=== PATIENT | male | born 1950 | race Caucasian/White ===

== ENCOUNTER → 2017-04-09 | Outpatient (CLI) | payer OTHER ==
[~2017-04-09] VITALS: Ht 188 cm; Wt 111.6 kg
[~2017-04-09] MED LIST: ADULT LOW DOSE81 MG PO; AMBIEN 10 MG TA10 MG PO; ANDRODERM1 EAC1 TD; ASPIRIN EC81 M1 PO; CLONIDINE0.1 PO; COLACE 100 MG100 MG PO; DESYREL50 MG PO; FISH OIL 1,0001 EAC5 PO; HYDROCODON-ACE1 EAC5 PO; MAGNES; METHADONE HCL 110 M1 PO; METHADONE HCL5 MG PO; METHYLIN5 MG PO; METOPROLOL SUCC25 M1 PO; NEURONTIN 300300 M1 PO; NORCO 10-325 T1 EACH PO; OXYCODONE HCL5 M1 PO; TEGRETOL XR100 MG PO; TEGRETOL200 MG PO; TIZANIDINE HCL2 M1 PO; TIZANIDINE HCL4 MG PO; VITAMIN D1000 UNI1 PO; VITAMIN D3400 UNIT PO; VITAMINC500 PO; Vitamin D PO; WELLBUTRIN SR150 MG PO; ZANAFLEX2 M1 PO; ZANAFLEX2 MG PO; ZOFRAN 4 MG ORAL4 MG PO
--- NOTE | ~2017-04-09 | HPC ---
[address] [address] PAIN MANAGEMENT CONSULTATION Name: FABIÁN LYNCH Room #: [facility] [id number] Admission: 04/09/17 Attend Phys: Adrián Garcia DO Discharge: Date of : 46 Report #: [id number] THIS REPORT FOR: //name// CC: [facility] physician/PCP Adrián Garcia The patient is a 67-year-old gentleman with an intrathecal pump, status post lumbar decompressive laminectomy and chronic pain syndrome. He uses an incredibly low dose of morphine, 0.52 mg a day via a fled dosing program, which increases little bit at 10:00 a.m. to 6:00 p.m. He returns to pain clinic today for intrathecal pump refill, it is only about 6 months. He notes that his primary physician who writes for hydrocodone which he uses on a nondaily basis has left this practice. I have taken the liberty today of renewing hydrocodone 10/325 one tablet 3-4 times a day, limit 100 tablets. This should last about 6 months in this particular patient. PROCEDURE: Intrathecal pump refill. PROCEDURE NOTE: After written and informed consent was obtained, area overlying the pump was cleansed with ChloraPrep. Skin wheal with Xylocaine was raised. Pump was aspirated of its residual contents 9 mL. Refilled with 20 mL of new injectate, morphine 10 mg per mL. Pump was reprogrammed to deliver the same flex program, total daily dose of 0.52 mg of morphine a day. New reserve alarm day is . I would like to refill the pump, however, in 6 months due to concerns for stability of the agent in the pump. The needle was removed. The area was cleansed, Band-Aid was applied. The patient was monitored for an appropriate period of time, discharged in good and stable condition. By: [id number] Adrián Garcia DO /nt
[2017-04-09 14:32] VITALS: BP 123/71
== END | disposition home or self-care (01) ==
LOC: PAIN 07:14
DX: G89.4 Chronic pain syndrome (principal); Z98.890 Other specified postprocedural states

== ENCOUNTER → 2019-01-30 | Outpatient (CLI) | payer OTHER ==
[~2019-01-30] VITALS: Ht 185.4 cm; Wt 107.7 kg
[~2019-01-30] MED LIST changes: +KRILL OIL500 MG PO; +OXYCODONE-ACET1 EACH PO
--- NOTE | ~2019-01-30 | HPC ---
[facility] [address] [place] [address] PAIN MANAGEMENT CONSULTATION Name: FABIÁN LYNCH [facility] #[facility] [id number] Admission: 01/30/19 ������������������ Attend Phys: Cesar Boyd MD Discharge: ������������������ Date of : 46 Report #: [id number] THIS REPORT FOR: //name// CC: [facility] physician/PCP Cesar Morejon DO DATE OF SERVICE: 01/30/2019 Followup visit for chronic low back pain with radiculopathy and refill of intrathecal infusion pump. The patient returns to clinic today for refill of his pump. He has pain across his low back pain radiating into his left hip. Pain score with the pump is a 6/10, but he is satisfied with his current regimen, which also includes [place] 10/325, which he takes no more than about once a day for breakthrough pain in the evening. This works effectively, but he does not like the fact that it keeps him up at night. He had previously tried oxycodone. I have agreed to provide that for him as an alternative. His pump is infusing monotherapy with morphine and his dose is relatively low. He has an additional increase for 4 hours in the evening with his flex programming. I would like to increase that. PQRS REVIEW: 1. History of diffuse osteoarthritis involving his back and hips, particularly left hip, which is bothering him today. 2. He has fallen in the last 3 months, but would not normally be considered a fall risk. This is weather related. 3. He has had no blood thinners. 4. He has a history of hypertension and is under treatment by primary care physician. All medications were reviewed and reconciled. 5. He is on an opioid agreement, signed several years ago and reviewed today. He has no significant side effects from the medication, uses it carefully and cautiously at low dose, safeguard his medication. He is grateful for the additional relief it provides. 6. He does not use tobacco but drinks alcohol in a social setting. PHYSICAL EXAMINATION: GENERAL: 6 feet 1, 237 pounds. BMI 31.3. Blood pressure is 110/68, heart rate 70, respirations 16. He is able to move independently from sitting to standing position and ambulate without too much difficulty. He has pain across his low back. Positive straight leg raising noted on the left, involving the left hip. IMPRESSION: 1. Chronic low back pain, chronic hip pain with osteoarthritis. [facility] [address] [place] [address] PAIN MANAGEMENT CONSULTATION Name: FABIÁN LYNCH Room #: REG CLI [facility]#: [id number] Admission: 01/30/19 ������������������ Attend Phys: Cesar Boyd MD Discharge: ������������������ Date of : 46 Report #: [id number] 2. Post-laminectomy syndrome with radiculopathy. PROCEDURE: Pump refill. Skin was prepped with ChloraPrep and anesthetized. A 22-gauge non-coring needle advanced into the pump and old medication was removed and discarded per protocol. Pump was then refilled with a combination of hydromorphone and bupivacaine and a programming session was performed to increase the medication overall by about 10%. The majority of that being during his flex Program from 4:30 until 11:30 in the evening, a 7 hour boost. New medications were provided for breakthrough in the form of oxycodone 5/325, and I plan to see him back in the Pain Clinic in 3 to 6 months. ��������������������������������������������� ���������������������������������������� By: ��������������������������������������������� [id number] Cesar Boyd MD /nt
[2019-01-30 09:09] VITALS: BP 110/68
--- NOTE | 2019-01-30 09:22 | NUR ---
Pain Clinic Assessment: 1. History of Osteoarthritis: LEFT HIP History of Rheumatoid Arthritis: NONE 2. Height: 6 ft. 1 in. 185.4 cm. Weight: 237.4 lb. oz. 107.684 kg. Patient's BMI: 31.3 3. Vital Signs: BP: 110/68 Pulse: 70 Resp: 16 Temp: 02 Sat: 98 ECG Mon: 4. Pain Intensity: 6 5. Fall Risk: Dizziness: N Needs help standing or walking: N Fallen in the last 3 months: Y Fall risk comments: 6. Patient on Blood Thinner: None 7. History of Hypertension: Y 8. Opioid Therapy greater than 6 weeks: Y Opiate Contract Signed: 10/14/20 9. Risk Assessment Tool Provided: 10. Functional Assessment Tool: 11. Recreational Drug Use: Never Drug Type: Tobacco Use: Former Smoker Tobacco Type: Amount or Packs/day: How Many Years: Alcohol Use: Yes Frequency: Quant:
== END | disposition home or self-care (01) ==
LOC: PAIN 01-12 07:03
DX: Z45.1 Encounter for adjustment and management of infusion pump (principal); M54.16 Radiculopathy, lumbar region; M96.1 Postlaminectomy syndrome, not elsewhere classified; G89.29 Other chronic pain; M16.0 Bilateral primary osteoarthritis of hip; I10 Essential (primary) hypertension; Z87.891 Personal history of nicotine dependence; Z91.041 Radiographic dye allergy status; Z88.8 Allergy status to other drugs, medicaments and biological substances; Z79.899 Other long term (current) drug therapy

== ENCOUNTER → 2019-12-14 | Outpatient (CLI) | payer OTHER ==
[~2019-12-14] VITALS: Ht 185.4 cm; Wt 90.2 kg
[~2019-12-14] MED LIST changes: +ARMOUR THYROID30 M1 PO; +B-COMPLEX PLUS1 EACH PO; +DHEA50 MG PO; +FEXOFENADINE-P1 EACH PO; +FOLIC ACID1 MG PO; +MORINGA PO; +MSM1000 MG PO; +N-ACETYL-L-CYS600 MG PO; +PROBIOTIC1 EAC7 PO; +TESTOSTERONE200 MG IM; +VITAMIN C WIT1000 MG PO; +ZANAFLEX4 MG PO
--- NOTE | ~2019-12-14 | HPC ---
[facility] [address] [place] [address] PAIN MANAGEMENT CONSULTATION Name: FABIÁN LYNCH Room #: REG [facility] Karla#: [id number] Admission: 12/14/19 Attend Phys: Cesar Boyd MD Discharge: Date of : 46 Report #: [id number] THIS REPORT FOR: //name// cc: DOMENICA Chance family physician/PCP DOMENICA Chance family physician/PCP ~ THIS REPORT FOR: //name// CC: DOMENICA physician/PCP Cesar Boyd DATE OF SERVICE: 12/14/2019 Followup visit for management of intrathecal infusion pump. The patient returns today with his for refill of his pump. It has been almost 9 months! We usually try to fill them at 6 months, but they were unable to make it in. He has some reservoir back up and was able to make it this far. He reports that there has been no decline in the medications effectiveness over the course of the last 3 months, so I am fine with him using the pump all the way through. Function and reduction in pain is a estes here. The medication should not cause harm as it stays longer in the pump, it is in a closed container. He has lost 50 pounds since he was last seen! This has helped his pain and his mobility. We talked about possibly lowering his dose, but I think we will keep him where he is given his excellent control of pain at this time. It seems unnecessary to rock the boat. He does not use oral medicines at all. He has a complex history of spinal issues with both anterior and lumbar disk surgeries. He is grateful for the pain relief to control these conditions. PQRS: Positive for osteoarthritis of the left hip. He has some antalgic features to his gait. BMI is 26.2 and his weight now 198. He used to weigh over 245 pounds. Blood pressure 131/76, heart rate 75, respirations 14, O2 sat 97, pain intensity is 2/10 with his current regimen. He has not fallen recently or injured himself. He does not appear to be a fall risk. He is on no blood thinning medications. He has hypertension, which is treated by his primary care physician, Dr. Hunter. I reviewed all his medications and reconciled them on our record. There have been no significant changes since his last visit here. He has a prescription for oxycodone, but rarely uses it. He is on an opioid agreement for that. He is low risk by the opioid risk tool scoring 0. His functional assessment score 14/70, an excellent score suggesting that he has really made some great progress and being more active. He continues to smoke and has done so for 31 years. He was counseled. He uses alcohol occasionally in social setting. [address] [address] PAIN MANAGEMENT CONSULTATION Name: FABIÁN LYNCH Room #: REG CL Karla#: [id number] Admission: 12/14/19 Attend Phys: Cesar Boyd MD Discharge: Date of : 46 Report #: [id number] IMPRESSION: 1. Chronic intractable back pain secondary to spondylosis. 2. Post-laminectomy and fusion. 3. Failed back syndrome. PROCEDURE: Refill and reprogramming of intrathecal infusion pump. After informed consent, the skin was prepped with ChloraPrep and a 22-gauge non-coring needle advanced into the pump. Old medication removed and discarded. The pump was refilled with a total of 19.5 mL of morphine 20 mg per mL. Reprogramming session was performed and checked by myself and the nurse. I gave him my cellular phone number in case there are any Emergency Room visits or other concerns or if they have questions about the pump. He was discharged with a copy of his programming information. He has again between 9 and 10 months of medication remaining in the pump. We would like to see him in 6 months, but if he is doing well, I have allowed him to go ahead and push that up to 9. By: [id number] Cesar Boyd MD /nt
[2019-12-14 11:05] VITALS: BP 113/76
--- NOTE | 2019-12-14 12:08 | NUR ---
Pain Clinic Assessment: 1. History of Osteoarthritis: LEFT HIP History of Rheumatoid Arthritis: NONE 2. Height: 6 ft. 1 in. 185.4 cm. Weight: 198.8 lb. oz. 90.175 kg. Patient's BMI: 26.2 3. Vital Signs: BP: 113/76 Pulse: 75 Resp: 14 Temp: 02 Sat: 97 ECG Mon: 4. Pain Intensity: 2 5. Fall Risk: Dizziness: N Needs help standing or walking: N Fallen in the last 3 months: Y Fall risk comments: 6. Patient on Blood Thinner: None 7. History of Hypertension: Y 8. Opioid Therapy greater than 6 weeks: Y Opiate Contract Signed: 10/14/17 9. Risk Assessment Tool Provided: 0-LOW RISK 10. Functional Assessment Tool: 11. Recreational Drug Use: Never Drug Type: Tobacco Use: Former Smoker Tobacco Type: Cigarettes Amount or Packs/day: How Many Years: 31 Alcohol Use: Yes Frequency: Quant:
== END | disposition home or self-care (01) ==
LOC: PAIN 12-12 10:21
DX: Z45.1 Encounter for adjustment and management of infusion pump (principal); G89.29 Other chronic pain; M47.896 Other spondylosis, lumbar region; M96.1 Postlaminectomy syndrome, not elsewhere classified; I10 Essential (primary) hypertension; Z98.890 Other specified postprocedural states; Z79.899 Other long term (current) drug therapy; Z87.891 Personal history of nicotine dependence; Z91.041 Radiographic dye allergy status; Z88.8 Allergy status to other drugs, medicaments and biological substances

== ENCOUNTER → 2020-10-17 | Outpatient (CLI) | payer OTHER ==
[~2020-10-17] VITALS: Ht 185.4 cm; Wt 82.1 kg
[~2020-10-17] MED LIST changes: +ACETYL L-CARNI500 MG PO; +COQ-10100 MG PO; +ENDARI5 GM PO; +GALZIN25 MG PO; +SELENIUM SULFI120 M1 PO; +VITAMIN A10000 UNI3
[2020-10-17 10:39] VITALS: BP 138/88
--- NOTE | 2020-10-17 10:54 | NUR ---
Pain Clinic Assessment: 1. History of Osteoarthritis: LEFT HIP History of Rheumatoid Arthritis: NONE 2. Height: 6 ft. 1 in. 185.4 cm. Weight: 181.1 lb. oz. 82.146 kg. Patient's BMI: 23.9 3. Vital Signs: BP: 138/88 Pulse: 77 Resp: 14 Temp: 02 Sat: 98 ECG Mon: 4. Pain Intensity: 3 5. Fall Risk: Dizziness: N Needs help standing or walking: N Fallen in the last 3 months: N Fall risk comments: 6. Patient on Blood Thinner: None 7. History of Hypertension: Y 8. Opioid Therapy greater than 6 weeks: Y Opiate Contract Signed: 10/14/17 9. Risk Assessment Tool Provided: 0-LOW RISK 10. Functional Assessment Tool: 11. Recreational Drug Use: Never Drug Type: Tobacco Use: Former Smoker Tobacco Type: Amount or Packs/day: How Many Years: Alcohol Use: Yes Frequency: Monthly Quant: 1
== END | disposition home or self-care (01) ==
LOC: PAIN 08-12 07:04
PROVIDERS: ATTEND Anesthesiology Pain Medicine
DX: Z45.1 Encounter for adjustment and management of infusion pump (principal); M54.16 Radiculopathy, lumbar region; G89.29 Other chronic pain; M16.12 Unilateral primary osteoarthritis, left hip; I10 Essential (primary) hypertension; Z98.890 Other specified postprocedural states; Z79.899 Other long term (current) drug therapy; Z87.891 Personal history of nicotine dependence; Z88.8 Allergy status to other drugs, medicaments and biological substances; Z91.041 Radiographic dye allergy status

== ENCOUNTER → 2021-05-29 | Outpatient (CLI) | payer OTHER ==
[~2021-05-29] VITALS: Ht 185.4 cm; Wt 85.0 kg
[~2021-05-29] MED LIST changes: +ARMOUR THYROID60 M1 PO
[2021-05-29 10:26] VITALS: BP 128/87
--- NOTE | 2021-05-29 10:40 | NUR ---
Pain Clinic Assessment: 1. History of Osteoarthritis: LEFT HIP History of Rheumatoid Arthritis: NONE 2. Height: 6 ft. 1 in. 185.4 cm. Weight: 187.4 lb. oz. 85.004 kg. Patient's BMI: 24.7 3. Vital Signs: BP: 128/87 Pulse: 74 Resp: 16 Temp: 02 Sat: 97 ECG Mon: 4. Pain Intensity: 4 5. Fall Risk: Dizziness: N Needs help standing or walking: N Fallen in the last 3 months: N Fall risk comments: 6. Patient on Blood Thinner: None 7. History of Hypertension: Y 8. Opioid Therapy greater than 6 weeks: Y Opiate Contract Signed: 10/14/17 9. Risk Assessment Tool Provided: 0-LOW RISK 10. Functional Assessment Tool: 11. Recreational Drug Use: Never Drug Type: Tobacco Use: Former Smoker Tobacco Type: Cigarettes Amount or Packs/day: 1-2 PPD How Many Years: 15 Alcohol Use: Yes Frequency: Special Occasions Quant: 1 BEER
== END | disposition home or self-care (01) ==
LOC: PAIN 06:58
PROVIDERS: ATTEND Anesthesiology Pain Medicine
DX: Z45.1 Encounter for adjustment and management of infusion pump (principal); M54.16 Radiculopathy, lumbar region; G89.29 Other chronic pain; M96.1 Postlaminectomy syndrome, not elsewhere classified; Z98.890 Other specified postprocedural states; Z79.899 Other long term (current) drug therapy; Z87.891 Personal history of nicotine dependence